=== PATIENT | male | born 1975 | race Hispanic/Latino ===

== ENCOUNTER 2016-07-11 06:20 | Day surgery (SDC) | payer OTHER ==
--- NOTE | 2016-07-10 10:00 | PCM.ANEPRE ---
Anesthesia Pre-Op Review Reason for Review: BMI > 45, STOP BANG 01/04 Anesthesia Recommendations: Proceed with Procedure Additional Comments 41 y/o male scheduled for laparoscopic umbilical hernia repair with mesh. Comoribidities include NIDDM, HTN, BMI 48. Stop Bang 01/04. Underwent GETA for pilonidal cyst excision in 2007. No apparent issues after last general anesthetic. Minimal postoperative pain requirements from laparoscopic surgery. No other apparent pulmonary disease. Proceed with surgery as planned pending evaluation by DOS anesthesiologist. Consider outpatient KRISTIAN order set. Garth Agudelo MD Jul 10, 2016 10:00
[2016-07-11] VITALS (9 sets, daily range): BP systolic 120–150; BP diastolic 71–88; PULSE 65–84; RESP 10–22; O2SAT 93–98
[~2016-07-11] VITALS: Ht 177.8 cm; Wt 144.7 kg
[~2016-07-11 06:20] MED LIST: CeFAZolin Inj 3 GM in Dextrose 5% 50 ML IV ONE; Heparin 5,000 Unit/mL Inj SUBQ ONE; LISI30TA5 PO; METF500T4 PO
[2016-07-11] MEDS ORDERED: Ketamine 10 mg/mL 20 mL Inj ONE (06:21)
[2016-07-11] MEDS ORDERED: fentaNYL-PF 50 mCg/mL 2 mL Inj ONE (06:21)
[2016-07-11] MEDS ORDERED: CeFAZolin 2 Gm/50 mL D5W Duplex Bag IV ONE (06:26)
[2016-07-11] MEDS: Lactated Ringer's 1,000 ML IV SCH ×4 (06:59→10:34)
[2016-07-11] MEDS ORDERED: Insulin LISPRO 300 Unit/3 mL Inj ONE (08:26)
[2016-07-11] MEDS ORDERED: Heparin 5,000 Unit/mL Inj SUBQ ONE (08:50)
[2016-07-11] MEDS ORDERED: Bupivacaine-MPF 0.5% W/EPI 30 mL Inj INFILTRATE ONE (08:50)
--- NOTE | 2016-07-11 08:59 | PCM.HPANE ---
Patient Data Surgeon Admitting Provider: Attending Provider:Orlin Ryan MD Primary Care Physician:Shahbaz Other Provider:Leon Sprague Anesthesia Reason for Visit Umbilical Hernia Ht/WT & BMI Height (Feet): 5 Height (Inches): 10 Weight (Kilograms): 144.7 Body Mass Index 45.00 Allergies Coded Allergies: No Known Allergies (Verified , 07/09/16) Past Anesthesia History Anesthesia History: Denies:: Abnormal Airway, Anesthesia Reactions, Difficult Intubation, Malignant Hyperthermia Diabetes History Hx Diabetes?: Yes Type of Diabetes: Type II Glycemic Control: Oral Medication Current Bedside Blood Glucose: 228 MRSA MRSA: No Medications Hypertension Medication: Yes (LISINOPRIL) Home Meds Incl Beta Celestino: No Reported Medications Lisinopril 30 Mg [id number] Mg PO DAILY 30 Days Ref 0 07/09/16 Metformin 500 Mg [id number] Mg PO BID Ref 0 07/09/16 Discontinued Scripts Sulfamethoxazole/Trimethoprim (Bactrim Ds Tablet)1 Each Tablet1 Each PO BID 10 Days Prov:Lesley Reyes ARNP 04/01/13 CEPHALEXIN-Expunged Drug, Do Not Renew! (Keflex-Expunged Drug, Do Not Renew!) 500 Mg Capsule1,000 Mg PO Q12 10 Days Prov:Lesley Reyes ARNP 04/01/13 Hydrocod/APAP-Expunged, Do Not Renew! (VICODIN 5/500-Expunged Drug, Do Not Renew )1 Each Tablet1 Each PO Q4-6H 30 Days Prov:Lesley Reyes ARNP 04/01/13 Isotretinoin (Zenatane)40 Mg [id number] Mg PO BID 30 Days Prov:Lesley Reyes ARNP 04/01/13 Hydrochlorothiazide-Expunged, Do Not Renew! 25 Mg [id number] Mg PO DAILY #30 TAB Prov:Lesley Reyes ARNP 04/01/13 Atenolol-Expunged Drug, Do Not Renew! 25 Mg [id number] Mg PO BID 30 Days Prov:Lesley Reyes RN SURGERY ICU 04/01/13 History History of ENT Problems?: No HEENT History: Positive for:: Abnormal Airway Difficult Intubation (relatively difficult due to thick neck, obesity, and large tongue) Hx of Heart Problems?: Yes Cardiovascular History: Positive for:: Hypertension Denies:: Heart Murmur Hx of Respiratory Problem?: Yes Respiratory History: Positive for:: Dyspnea (HOFFMAN) Denies:: Use of C-PAP Machine (SNORES) Hx Neurologic Problems?: No Hx of GI Problems?: Yes Other GI Pertinent History: HX PANNICULITIS, MORBID OBESITY UMBILICAL HERNIA=CURRENT PROBLEM Hx of Problems?: No Male Hx: Denies:: Prostate Problems Scrotal Mass Testicular Surgery Skin History: Positive for:: History Skin Disorders? (HX PUSTUALR ACNE ) Pressure Ulcers (2013 HX OF ULCERATIONS RT BUTTOCK & SACRUM-SEEN @ [facility]) Hx Musculoskeletal Problems?: Yes Hx of Psycho/Social Problems?: No Hx Surgeries?: Yes (EXC ABCESSED PILONIDAL CYST) Hx Any Other Health Problems?: Yes Other History: Denies:: Cancer Endocrine Disease Hospitalization Thyroid Disease History Blood Transfusions: Denies:: Blood Transfusions Hx Diabetes: YesBedside Blood Glucose: 228 Hx Alcohol Use: Yes (OCCAS)Have You Smoked inLast 12 mo: No Stop/Bang S-Snoring: Do You Snore Loudly: Yes T-Tired: feel tired, fatigued: No O-Obsered: Observed not breath: Yes P-Blood Pressure: treated: Yes B- Body Mass Index > 35 kg/m2: Yes A- Age over 50: Yes N- Neck Large Circumference: Yes G- Gender Male: Yes KRISTIAN Total Score: 7 KRISTIAN Risk Assessment: High Risk, =/>3 Yes KRISTIAN Category 4 OutPt Procedure: Yes Risk Assessment Category Category 1A: Patient has history of documented sleep apnea, and HAS NOT received any narcotic, sedative or anesthesia administration during this stay. Category 1B: Patient has history of documented sleep apnea, and HAS received any narcotic , sedative or anesthesia administration during this stay Category 2: Patient has SUSPECTED Obstructive Sleep Apnea, and HAS received any narcotic , sedative or anesthesia administration during this stay. Category 3: Patient has SUSPECTED Obstructive Sleep Apnea and HAS NOT received narcotic, sedative or anesthesia administration during this stay. Category 4: Outpatient in Procedural Areas with known sleep apnea or who screen positive for High Risk via the STOP/BANG questionnaire. Exam Exam Vital Signs Vital Signs Date Time Temp Pulse Resp B/P Pulse Ox O2 Delivery O2 Flow Rate FiO2 07/11/16 06:53 36.8 84 20 137/88 97 Room Air General Appearance: Alert, Oriented X3, Cooperative, No Acute Distress HEENT/AIRWAY: MP 3 Lungs: Clear to Auscultation, Normal Air Movement Heart: Exam Unremarkable, Regular Rate/Rhythm, No Murmurs/Rubs/Gallops Meds/Labs/Diagnostics Admission Meds Current Medications Cefazolin Sodium 3 gm/Dextrose/ Water 50 ml @ 100 mls/hr ONCE ONCE IV Last administered on 07/11/16 08:29; Start 07/11/16 at 06:00; Stop 07/11/16 at 06:29 ; Status DC Lactated Ringer's (Lr) 1,000 ml @ 120 mls/hr Q8H20M IV Last administered on 08:51; Start 07/11/16 at 05:00; Stop 07/11/16 at 13:19 Bedside Blood Glucose: 228 Plan Impression Patient chart reviewed, patient interviewed and anesthestic plan with risks, benefits, and alternatives discussed, and informed consent obtained. NPO Status: 0430 WATER WITH MEDS ASA Physical Status: ASA3 Severe Disease (dm, kristian, pustular acne, ES=360, no HgbA1C available....discussed with Dr Ryan) Anesthetic Plan: GA Bene/Risks/Altern/Consents: Yes HP Complete Prior to Induction: Yes Preston Bojorquez MD Jul 11, 2016 08:59
[2016-07-11] MEDS ORDERED: Lactated Ringer's 1,000 ML IV SCH (09:01)
[2016-07-11] MEDS ORDERED: Lactated Ringer's 500 ML IV PRN (09:01)
[2016-07-11] MEDS ORDERED: Dexamethasone 4 mg/mL Inj IVPUSH PRN (09:05)
[2016-07-11] MEDS ORDERED: Ondansetron 2 mg/mL 2 mL Inj IVPUSH PRN (09:05)
[2016-07-11] MEDS ORDERED: EPHEDrine Sulfate 50 mg/mL Inj IVPUSH PRN (09:05)
[2016-07-11] MEDS ORDERED: Phenylephrine 10,000 mCg/mL Inj IVPUSH PRN (09:05)
[2016-07-11] MEDS ORDERED: fentaNYL-PF 50 mCg/mL 2 mL Inj IVPUSH PRN (09:05)
[2016-07-11] MEDS ORDERED: MetoCLOpramide 5 mg/mL 2 mL Inj IVPUSH PRN (09:05)
[2016-07-11] MEDS ORDERED: oxyCODONE-Acetamin 5-325 mg Tablet PO PRN (09:45)
[2016-07-11] MEDS: HYDROmorphone 1 mg/mL Inj IVPUSH PRN ×2 (10:00→10:34)
[2016-07-11] MEDS ORDERED: Insulin LISPRO 300 Unit/3 mL Inj IV ONE (10:05)
--- NOTE | 2016-07-11 10:14 | OP ---
[address] [address] OPERATIVE REPORT PATIENT: PHILIPPE RAZA : 1975 MR#: [id number] ADMIT: 07/11/2016 JOB ID: [id number] DATE OF SURGERY: 07/11/2016 ANESTHESIA: General. PREOPERATIVE DIAGNOSIS(ES): 1. Morbid obesity. 2. Symptomatic umbilical hernia. POSTOPERATIVE DIAGNOSIS(ES): 1. Morbid obesity. 2. Symptomatic umbilical hernia (the umbilical hernia contained incarcerated fat). OPERATION: Laparoscopic repair of incarcerated umbilical hernia using mesh. SURGEON: Orlin Ryan MD. CARDIOVASCULAR RADIOLOGIC TECHNOLOGIST: Lona Fajardo PA-C (the anesthesiologist assistant certified was required for the safe and timely completion of the case) and EMILIANO Arevalo. COMPLICATIONS: None. ESTIMATED BLOOD LOSS: Minimal. CONDITION: Satisfactory. SPECIMEN: None. FINDINGS: There is an approximately 3-4 cm fascial defect. This was repaired with an 11.[address] patch using the Echo positioning system. INDICATIONS/SIGNIFICANT HISTORY: The patient is a 41-year-old man with morbid obesity, diabetes and panniculitis who has been struggling with a symptomatic umbilical hernia. He had previously been seen by a colleague of [facility], and was referred to me. He desired to have this repaired, as he believed this limited his ability to do activities and lose weight. He has panniculitis, for which he is on suppressive antibiotics. I advised him of the risk of mesh infection, and he desired to proceed with surgery. OPERATIVE TECHNIQUE: The patient was taken to the operating room and placed in the supine position. General anesthesia administered. Preoperative antibiotics were given. Insulin was also administered for an elevated blood sugar. The abdomen was prepped and draped in a standard surgical fashion. I took care to exclude the pannus from the operative field. A preoperative pause was performed. I then gained entry into the abdomen through a left upper quadrant 5 mm incision using a 5 mm Optiview trocar. Pneumoperitoneum was achieved without complication. Local anesthetic was injected, followed by insertion of a left lower quadrant 5 mm port and eventually a right mid abdomen 5 mm port. Also, a 12 mm port was inserted into the left mid abdomen. The hernia was easily identified and there was a band of omentum going into it. This was transected using cautery. I then had to remove the incarcerated omentum from the hernia sac. This was accomplished using a combination of electrocautery and sharp dissection. The fat was then placed in an EndoCatch bag and eventually removed through the 12 mm port site. The patch was then inserted and positioned using the Echo positioning system. OptiFix tacks were then placed circumferentially in the outer perimeter to ensure there were no folds. I then also placed an inner perimeter of tacks. I elected not to place transfascial sutures given the risk of mesh infection because of his panniculitis and skin infection. The mesh was in good final position and nicely secured. The 12 mm port site fascia was then closed using a single 0 PDS suture using a laparoscopic suture passer. The other ports were then removed and pneumoperitoneum released. The skin was closed using 4-0 Monocryl. The small incision at the umbilicus to accommodate the positioning system was closed using Dermabond. All of the incision sites were then covered with Dermabond. A pressure dressing was applied to the umbilicus. The entire procedure was well tolerated and without complication.
--- NOTE | 2016-07-11 12:26 | PCM.ANEP2 ---
Post Anesthesia Evaluation ASA/CMS Post Anesthesia VS in Patient's Normal Range?: Yes Resp Stable; Airway Patent?: Yes CV Function & Hydration Stable: Yes Mental Status Recovered?: Yes Pain control Satisfactory?: Yes N/V Control Satisfactory?: Yes Preston Bojorquez MD Jul 11, 2016 12:26
--- NOTE | 2016-07-11 12:26 | PCM.ANEP1 ---
Post Anesthesia Phase 1 PACU Phase 1 Assessment Vital Signs Vital Signs Date Time Temp Pulse Resp B/P Pulse Ox O2 Delivery O2 Flow Rate FiO2 07/11/16 11:09 36.4 73 10 142/78 96 Nasal Cannula 2.5 07/11/16 10:45 65 10 120/71 98 Nasal Cannula 2.5 07/11/16 10:25 80 16 141/75 93 Nasal Cannula 3 07/11/16 10:10 83 17 133/80 94 Nasal Cannula 3 07/11/16 10:05 72 21 134/71 97 Simple Mask 10 07/11/16 10:00 77 22 137/76 96 Simple Mask 10 07/11/16 09:57 36.2 150/83 07/11/16 06:53 36.8 84 20 137/88 97 Room Air Anesthetic Administered: GA Level of Alertness: Awake, talking GARDUNO's with Equal Strength: Yes Pain: No Nausea or Vomiting: No Oxygen Delivery: Simple Mask Lungs: Clear to Auscultation, Normal Air Movement Dermatome Level: Full Sensation Summary blood sugar managed with lispro total of 10 units lowering from 228 to 181. Pt instructed by me and Dr Ryan to go to his primary care physician to optimize management Preston Bojorquez MD Jul 11, 2016 12:26
== END 2016-07-11 23:59 | disposition home or self-care (01) ==
LOC: SAS 06:20
PROVIDERS: ATTEND General Practice
DX: K42.0 Umbilical hernia with obstruction, without gangrene (principal); E11.9 Type 2 diabetes mellitus without complications; I10 Essential (primary) hypertension; M79.3 Panniculitis, unspecified; E66.01 Morbid (severe) obesity due to excess calories; Z68.42 Body mass index [BMI] 45.0-49.9, adult
CPT/HCPCS: 49653; C1781; J0690; J1170; J1644; J2250; J7120